=== PATIENT | female | born 2005 | race Two or more races ===

== ENCOUNTER 2024-06-09 19:11 | Day surgery (SDC) | payer MEDICAID, SELFPAY ==
[2024-06-09 19:11] VITALS: BMI 26.5
--- NOTE | 2024-06-09 19:31 | PD.EDRME ---
Rapid Medical Screening Exam RME Arrival date/time: 06/09/24 19:11 19-year-old female G2, approximately 7 weeks presents emergency department complaining of vaginal bleeding that started this past Saturday. Time Seen by Provider: 06/09/24 19:23 Vital signs reviewed by provider: Yes
[2024-06-09 19:45] VITALS: BP 109/71; PULSE 86; RESP 18; TEMP 36.6; O2SAT 99
[2024-06-09 20:18] LABS: Basophils # (Auto) 0.1 Thou/mm3 (0.0-0.2); Basophils % (Auto) 0 % (0-2.5); Eosinophils # (Auto) 0.2 Thou/mm3 (0.0-0.5); Eosinophils % (Auto) 2 % (0-10); Hematocrit 36.5 % (36.0-46.0); Hemoglobin 12.4 g/dL (12.0-16.0); Immature Granulocytes % (Auto) 1 % (0-0); Immature Granulocytes Auto 0.06 Thou/mm3 (0.00-0.00); Lymphocytes % (Auto) 25 % (10-50); Mean Corpuscular Hemoglobin 28.4 pg (25.0-35.0); Mean Corpuscular Volume 84 fL (80-100); Monocytes # (Auto) 0.8 Thou/mm3 (0.0-0.8); Monocytes % (Auto) 7 % (0-12); Neutrophils # (Auto) 7.7 Thou/mm3 (1.8-7.7); Neutrophils % (Auto) 65 % (37-80); Nucleated Red Blood Cell % 0 /100 WBC (0); Platelet Count 308 Thou/mm3 (140-440); RDW Standard Deviation 37.2 fL (36.4-46.3); Red Blood Count 4.36 Miln/mm3 (4.00-5.20); White Blood Count 11.8 Thou/mm3 (3.6-11.0)
[2024-06-09 20:40] LABS: Alanine Aminotransferase 13 U/L (10-49); Albumin, Serum 4.8 gm/dL (3.5-5.0); Albumin/Globulin Ratio 1.5 (1.2-2.2); Alkaline Phosphatase 121 U/L (46-116); Anion Gap 9 (7-16); Aspartate Amino Transferase 21 U/L (0-34); BUN/Creatinine Ratio 18 Ratio (12-20); Bilirubin,Total 0.3 mg/dL (0.3-1.2); Blood Urea Nitrogen 11 mg/dL (9-23); Calcium 9.5 mg/dL (8.3-10.6); Calcium (Corrected) 9.5 mg/dL (8.5-10.1); Carbon Dioxide 26.6 mMol/L (20.0-31.0); Chloride 103 mMol/L (98-107); Creatinine (Component) 0.6 mg/dL (0.6-1.3); Globulin 3.1 gm/dL (2.3-3.5); Glucose 108 mg/dL (74-106); Osmolality,Calculated 277 (275-295); Potassium 3.5 mMol/L (3.4-5.1); Sodium 139 mMol/L (136-145); Total Protein 7.9 gm/dL (5.7-8.2); eGFR > 60 See Note
--- NOTE | 2024-06-09 21:03 | XR_ITS ---
Examination: OB Transvaginal ultrasound of the pelvis, complete Technique: Transvaginal sonographic images pelvis performed using bartholomew scale imaging Exam date and time: June 09, 2024 0911 hrs. Indications: Vaginal spotting and pelvic pain beginning 4 days ago Findings: Uterus 8.7 x 4.8 x 5.8 cm retroverted Heterogeneous thickened endometrial stripe 1.2 cm possible endometrial stripe versus artifact 0.43 cm corresponding to 5 weeks 2 days gestational age No pole, no cardiac activity Endometrial stripe measures up to 14 mm in thickness Right ovary obscured by bowel gas Left ovary 3.9 x 2.1 x 2.8 cm arterial flow Impression: Findings most consistent with retained products and spontaneous in progress Recommend short-term follow-up transvaginal pelvic sonography
[2024-06-09 21:42] LABS: Beta HCG,Quantitative 8469 mIU/mL (<5.0)
[2024-06-09 22:30] VITALS: BP 119/72; PULSE 83; RESP 20; TEMP 37.4; O2SAT 100
[2024-06-09 22:59] LABS: Collection Type, Urine Clean Catch; Squamous Epithelial Cell,Urine 0 /hpf (0-5)
[2024-06-09 23:17] LABS: Bacteria,Urine Rare; Bilirubin,Urine Negative (Negative); Blood,Urine 3+ (Negative); Clarity,Urine Clear (Clear/Hazy); Color,Urine Colorless (Lt Yel-Yel); Culture Indicated,Urine Not Indicated; Glucose, Urine Negative (Negative); Ketones,Urine Negative (Negative); Leukocyte Esterase,Urine Negative (Negative); Nitrite,Urine Negative (Negative); PH,Urine 6.5 (5.0-7.0); Protein,Urine Negative (Neg - Trace); RBC,Urine < 1 /hpf (0-3); Specific Gravity,Urine 1.004 (1.001-1.035); Urobilinogen,Urine Negative mg/dL (0.0-1.0); WBC,Urine < 1 /hpf (0-5)
[2024-06-09 23:19] LABS: Basophils # (Auto) 0.1 Thou/mm3 (0.0-0.2); Basophils % (Auto) 0 % (0-2.5); Eosinophils # (Auto) 0.1 Thou/mm3 (0.0-0.5); Eosinophils % (Auto) 0 % (0-10); Hematocrit 34.8 % (36.0-46.0); Hemoglobin 11.8 g/dL (12.0-16.0); Immature Granulocytes % (Auto) 1 % (0-0); Immature Granulocytes Auto 0.08 Thou/mm3 (0.00-0.00); Lymphocytes # (Auto) 1.9 Thou/mm3 (1.0-4.8); Lymphocytes % (Auto) 13 % (10-50); Mean Corpuscular HGB Conc 33.9 g/dl (31.0-37.0); Mean Corpuscular Hemoglobin 27.9 pg (25.0-35.0); Mean Corpuscular Volume 82 fL (80-100); Monocytes # (Auto) 0.7 Thou/mm3 (0.0-0.8); Monocytes % (Auto) 4 % (0-12); Neutrophils # (Auto) 12.5 Thou/mm3 (1.8-7.7); Neutrophils % (Auto) 82 % (37-80); Nucleated Red Blood Cell % 0 /100 WBC (0); Platelet Count 299 Thou/mm3 (140-440); RDW Standard Deviation 36.8 fL (36.4-46.3); Red Blood Count 4.23 Miln/mm3 (4.00-5.20); White Blood Count 15.3 Thou/mm3 (3.6-11.0)
[2024-06-09 23:38] VITALS: BP 107/61; PULSE 90; RESP 16; O2SAT 100
--- NOTE | 2024-06-09 23:38 | EDNOTE_ITS ---
ED OB Contraction Preg RMI/HPI General Chief complaint: Vaginal Bleeding Stated complaint: 7 weeks vaginal bleeding Time Seen by Provider: 06/09/24 19:23 Source: patient Arrival date/time: 06/09/24 19:11 19-year-old female G2, approximately 7 weeks presents emergency department complaining of vaginal bleeding that started this past Saturday which initially was just vaginal spotting. Patient reports yesterday bleeding increased moderately and has changed over 10 pads today. Patient reports follows BILL [facility]ER at [facility]. Patient denies any fever, chills, vomiting, dizziness, shortness of breath, chest pain, or any other associated symptoms. Mode of arrival: ambulatory Limitations: no limitations RME / HPI RME / HPI Narrative: 06/09/24 19:11 19-year-old female G2, approximately 7 weeks presents emergency department complaining of vaginal bleeding that started this past Saturday. Related Data : 2 Para: 1 Home Medications ?Medication ?Instructions ?Recorded ?Confirmed [id number] 1 mg 1 tab PO QDAY 03/08/23 03/10/23 tablet Previous Rx's ?Medication ?Instructions ?Recorded docusate sodium 100 mg capsule 100 mg PO BID #14 caps 03/11/23 (Colace) ferrous sulfate 325 mg (65 mg 325 mg PO BID #60 tabs 03/11/23 iron) tablet ibuprofen 800 mg tablet 800 mg PO Q8H PRN pain #30 tabs 03/11/23 Allergies Allergy/AdvReac Type Severity Reaction Status Date / Time No Known Allergies Allergy Verified 03/08/23 17:32 Review of Systems Review of Systems Systems Reviewed: All systems reviewed, normal except as documented Constitutional Constitutional: Denies body ache(s), Denies chills and Denies fever(s) Eyes Eyes: Denies change in vision ENT Ears, Nose, Mouth, and Throat: Denies disequilibrium, Denies dizziness, Denies sore throat and Denies vertigo Cardiovascular Cardiovascular: Denies chest pain and Denies dyspnea Respiratory Respiratory: Denies chest congestion, Denies cough and Denies dyspnea Gastrointestinal Gastrointestinal: Denies abdominal pain, Denies nausea and Denies vomiting Genitourinary Genitourinary: Reports abnormal vaginal bleeding Musculoskeletal Musculoskeletal: Denies abnormal gait and Denies arthralgias Integumentary/Breasts Skin/Breast: Denies erythema, Denies rash and Denies wounds Neurologic Neurologic: Denies abnormal gait, Denies disequilibrium, Denies dizziness and Denies vertigo Past Medical History Past Medical History NEUROLOGIC: Negative Neurological Disorders or Seizures CARDIAC: Negative Cardiac Disorders or Congestive Heart Failure RESPIRATORY: Negative Chronic Obstructive Pulmonary Disease (COPD) GASTROINTESTINAL: Negative Gastrointestinal Disorders GENITOURINARY: Negative Genitourinary Disorders or Renal Disease REPRODUCTIVE: Negative Previous Pregnancies MUSCULOSKELETAL: Negative Musculoskeletal Disorders ENDOCRINE: Negative Endocrine Disorders, Diabetes Mellitus Type 1 or Diabetes Mellitus Type 2 HEMATOLOGIC: Positive Blood Disorders and Anemia OTHER HISTORY: Negative Autoimmune Disease, Falls, Blood Transfusions, Anesthesia Reactions or Cancer Family History FAMILY HISTORY: Negative Family Psychiatric Problems, Family Respiratory Disorders, Family Cardiac Disorders, Family Gastrointestinal Problems, Family Cancer, Family Surgery or Family Anesthesia Reaction Surgical History SURGICAL: Negative Section Social History SMOKING STATUS: Never smoker ED Exam General Limitations: Present no limitations General appearance: Present alert and in no apparent distress Head Head exam: Present atraumatic Eye Eye exam: Present normal appearance, PERRL and EOMI ENT ENT exam: Present normal exam, normal oropharynx and mucous membranes moist Neck Neck exam: Present normal inspection, full ROM and trachea midline Chest Chest inspection: Present normal inspection and symmetric chest wall rise Respiratory Respiratory exam: Present normal lung sounds bilaterally Cardiovascular Cardiovascular exam: Present regular rate, normal rhythm and normal heart sounds Abdominal Exam Abdominal exam: Present soft and normal bowel sounds Extremities Exam Extremities exam: Present normal inspection and full ROM Back Exam Back exam: Present normal inspection and full ROM Neurological Exam Neurological exam: Present alert, oriented X3 and CN II-XII intact Psychiatric Psychiatric exam: Present normal affect and normal mood Skin Skin exam: Present warm, dry, intact and normal color Course Quality Measures none Orders Category Date Time Status Place in Surgical Day Care Routine Admission 06/10/24 05:23 Active COVID-19 Screening Questionnaire NOW Care 06/09/24 23:44 Active Consent [Obtain Written Consent For:] .NOW Care 06/10/24 05:25 Active Decision to Admit X1 Care 06/09/24 23:44 Completed Insert IV NOW Care 06/09/24 22:25 Active NPO NOW Care 06/09/24 23:52 Active Diet NPO (NOW) Diet 06/09/24 23:52 Active US OB transvaginal Stat Exams 06/09/24 21:03 Completed ABO/RH Type Stat Lab 06/09/24 19:41 Completed Beta HCG,Quantitative Stat Lab 06/09/24 19:41 Completed CBC Stat Lab 06/09/24 19:41 Completed CBC Stat Lab 06/09/24 22:55 Completed CMP [Comprehensive Metabolic Panel] Stat Lab 06/09/24 19:41 Completed Hemoglobin and Hematocrit Stat Lab 06/10/24 05:36 Ordered Type and Screen Stat Lab 06/09/24 22:55 Results Urinalysis, C/S if Indicated Stat Lab 06/09/24 22:53 Completed prbc [Red Blood Cells] Stat Lab 06/10/24 00:33 Results Doxycycline Inj [Vibramycin Inj] 100 mg Med 06/10/24 05:24 Ordered Sodium Chloride 0.9% 250 ml [Ns] 250 ml IV X1 Sodium Chloride 0.9% 1000 ml [Ns] 1,000 ml Med 06/09/24 23:51 Active IV 125 mls/hr Vital Signs Vital signs: Vital Signs Temperature 98 F 06/09/24 19:45 Pulse Rate 86 06/09/24 19:45 Respiratory Rate 18 06/09/24 19:45 Blood Pressure 109/71 06/09/24 19:45 Pulse Oximetry (%) 99 06/09/24 19:45 Oxygen Delivery Method Room Air 06/09/24 19:45 99% room air within normal limits Vaginal Bleeding MDM Narrative MDM Narrative: 19-year-old female G2, approximately 7 weeks presents emergency department complaining of vaginal bleeding that started this past Saturday which initially was just vaginal spotting. Patient reports yesterday bleeding increased moderately and has changed over 10 pads today. Patient reports follows BILL CHECKER at [facility]. Patient denies any fever, chills, vomiting, dizziness, shortness of breath, chest pain, or any other associated symptoms. CBC leukocytosis 11.8 trending upwards 15.3 with stable hemoglobin 12.4 trending down to 11.8. CMP was unremarkable. Ultrasound findings retained products and spontaneous in progress. Patient reports has had to change her pad 5 times during ER visit. On-call BILL CHECKER Dr. Martino consulted recommended repeat hemoglobin which we obtained and is stable and patient does not have any tachycardia or complaining of dizziness at this time. Dr. Martino agrees to admit patient for D&C in the OR at 0600. Patient will be kept NPO. Patient stable at time of admission. Patient data External records reviewed:: [facility] previous records Clinical information provided by:: patient Social determinants that could affect healthcare access:: none Patient has the following chronic illnesses:: N/A How is presenting disease/condition affected by chronic disease/condition?: no chronic disease Evaluation data The following diagnostics were reviewed and interpreted by me:: lab results and radiology exam(s) Lab and/or radiology exams considered but not ordered:: Ordered Interpretation Summary: Interpreted by me Medications / Prescriptions Medications or Prescriptions considered but not ordered:: Ordered Medication administrations:: Medication Administration History Sodium Chloride (Ns) 1,000 mls @ 125 mls/hr IV .Q8H ONE Stop: 06/10/24 07:50 Last Admin: 06/10/24 00:27 Dose: 125 mls/hr Documented By: JACOB Doxycycline Hyclate 100 mg/ (Sodium Chloride) 250 mls @ 125 mls/hr IV X1 ONE Stop: 06/10/24 07:23 Given Consultations Consultation(s) initiated? (list below): Yes Consultation #1 (Physician, Specialty, Details): Dr. Martino Diagnosis Vaginal Bleeding Differential Diagnosis: incomplete Most likely diagnosis given after review of the tests above:: Incomplete Admission Indicated Admission indicated?: indicated Admission Request Was there a request for admission?: Yes Admission Attestation Admission request attestation: Discussed case with [] from Hospitalist service regarding admission. Discussed patients ED course, exam findings, labs, and radiology results. The Hospitalist [agrees,declines] to accept the patient for admission. Disposition Plan Disposition Plan: Admit Discharge Plan Plan Patient Disposition: Admit Acute Care w/in Hospital Disposition Comment: Stable Prescriptions/Referrals Prescriptions/Med Rec: No Action ferrous sulfate 325 mg (65 mg iron) tablet 325 mg PO BID Qty: 60 0RF ibuprofen 800 mg tablet 800 mg PO Q8H PRN (Reason: pain) Qty: 30 0RF docusate sodium [Colace] 100 mg capsule 100 mg PO BID Qty: 14 0RF 1 mg Tablet 1 tab PO QDAY Referrals: No Primary/Family,Physician [Primary Care Provider] - In 1 week Problem List Clinical Impression: Incomplete Patient/Caregiver Discharge Instructions Print Language: Slovak Stand Alone Forms: Bibiana Award Info., Patient Portal Info Letter PA/MATH INTERVENTIONIST Supervising Physician PA/MATH INTERVENTIONIST Supervising Physician: Dr. Hummel
[2024-06-09 23:39] VITALS: BP 107/61; PULSE 73; RESP 18; TEMP 36.7; O2SAT 100
[2024-06-09 23:43] VITALS: BP 107/61; PULSE 69; RESP 21; TEMP 37.2; O2SAT 100
[2024-06-09 23:45] VITALS: BP 109/60; PULSE 67; RESP 15; O2SAT 100
[2024-06-10] VITALS (13 sets, daily range): BP systolic 91–113; BP diastolic 49–59; PULSE 63–77; RESP 14–22; TEMP 36.3–36.6; O2SAT 97–100
[2024-06-10] MEDS: SODIUM CHLORIDE 0.9% 1000 ML 1,000 ML 125 ML IV (00:27)
--- NOTE | 2024-06-10 05:25 | PD.GYNHP ---
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 OMER is a 19 year old female presented to the ER with heavy vaginal bleeding. Patient is approximately 7 weeks had a previous normal delivery in 2022. Patient denies any dizziness, light headedness, abdominal pain patient has saturated 10 pads yesterday. Review of Systems Review of Systems Systems Reviewed: All systems reviewed, normal except as documented Constitutional Constitutional: Denies body ache(s), Denies chills and Denies fever(s) Eyes Eyes: Denies change in vision ENT Ears, Nose, Mouth, and Throat: Denies disequilibrium, Denies dizziness, Denies sore throat and Denies vertigo Cardiovascular Cardiovascular: Denies chest pain and Denies dyspnea Respiratory Respiratory: Denies chest congestion, Denies cough and Denies dyspnea Gastrointestinal Gastrointestinal: Denies abdominal pain, Denies nausea and Denies vomiting Genitourinary Genitourinary: Reports abnormal vaginal bleeding Musculoskeletal Musculoskeletal: Denies abnormal gait and Denies arthralgias Integumentary/Breasts Skin/Breast: Denies erythema, Denies rash and Denies wounds Neurologic Neurologic: Denies abnormal gait, Denies disequilibrium, Denies dizziness and Denies vertigo Meds Home Medications and Allergies Home Medications ?Medication ?Instructions ?Recorded ?Confirmed ?Type [id number] 1 mg 1 tab PO QDAY 03/08/23 03/10/23 History tablet Allergies Allergy/AdvReac Type Severity Reaction Status Date / Time No Known Allergies Allergy Verified 03/08/23 17:32 Exam - NEWBORN HEARING SCREENER Vital Signs Temp Pulse Resp BP Pulse Ox O2 Del Method 98.9 F 63 16 98/51 L 98 Room Air 06/09/24 23:43 06/10/24 05:00 06/10/24 05:00 06/10/24 05:00 06/10/24 05:00 06/09/24 23:43 Constitutional Constitutional: no acute distress Routine HEENT Exam Head: Present normocephalic and atraumatic Eye: Present EOMI and PERRL ENT: Present mucous membranes moist Routine Neck Exam Neck: Present supple and trachea midline Routine Respiratory Exam Respiratory: Present chest non-tender, lungs clear, normal breath sounds and no resp distress Routine Cardiovascular Exam Cardiovascular: Present RRR Routine Abdominal Exam Abdominal: Present soft and normoactive bowel sounds Routine Extremities Exam Extremities: Present full ROM Routine Skin Exam Skin: Present intact and dry Routine Neurological Exam Neurological: Present alert, oriented X3 and CN II-XII intact Routine Psychiatric Exam Psychiatric: Present normal affect and normal thought process NEWBORN HEARING SCREENER - Results Labs 06/10/24 05:50 06/09/24 19:41 Labs: Short CBC 06/09/24 06/09/24 Range/Units 19:41 22:55 WBC 11.8 H 15.3 H (3.6-11.0) Thou/mm3 Hgb 12.4 11.8 L (12.0-16.0) g/dL Hct 36.5 34.8 L (36.0-46.0) % Plt Count 308 299 (140-440) Thou/mm3 BMP 06/09/24 19:41 Sodium 139 Potassium 3.5 Chloride 103 Carbon Dioxide 26.6 BUN 11 Creatinine 0.6 Glucose 108 H Calcium 9.5 Liver Function 06/09/24 Range/Units 19:41 Total Bilirubin 0.3 (0.3-1.2) mg/dL AST 21 (0-34) U/L ALT 13 (10-49) U/L Alkaline Phosphatase 121 H (46-116) U/L Albumin 4.8 (3.5-5.0) gm/dL Urine 06/09/24 Range/Units 22:53 Urine Color Colorless A (Lt Yel-Yel) Urine Clarity Clear (Clear/Hazy) Urine pH 6.5 (5.0-7.0) Ur Specific [place] 1.004 (1.001-1.035) Urine Protein Negative (Neg - Trace) Urine Glucose (UA) Negative (Negative) Impressions Impression: 19 Y/O with incomplete hb 12.4 on admission The patient has changed 2 pads in a hour, consequtively in 2 hours Vitals stable Assessment and Plan Additional Assessment & Plan Additional Plan: Ptient meets criteria for surgical management , given her bleeding. Boarded for D&C Doxycycline to be given preop for surgical prophylaxis Quality Measures Quality Measures none
--- NOTE | 2024-06-10 05:57 | PC.NURSE ---
REPORT GIVEN TO CAMPOS SOLIZ. ALL QUESTIONS ASKED AND ANSWERED. [facility]YDI HERE TO [facility] NURSE PATIENT TO TAKE TO OR. NO DISTRESS NOTED AT TRANSFER. PATIENT ON ROOM AIR.
[2024-06-10 06:07] LABS: Hematocrit 30.9 % (36.0-46.0); Hemoglobin 10.5 g/dL (12.0-16.0)
--- NOTE | 2024-06-10 06:55 | SUR.PHASEI ---
Arrived to [facility] via [facility]. Resting with eyes closed but responding to name. No c/o pain or discomfort. No s/o distress. Laura pad C/D/I.
--- NOTE | 2024-06-10 07:21 | SUR.PHASEII ---
Kathy Faith made aware to return to hospital with patient's clothing and to received discharge instructions.
--- NOTE | 2024-06-10 07:25 | SUR.PHASEII ---
Tolerated apple juice PO. Laura pad remains C/D/I. No c/o pain.
--- NOTE | 2024-06-10 08:08 | SUR.PHASEII ---
Discharged home to significant other Tovias. Laura pad with minimal red drainage. No c/o pain or discomfort. No s/o distress. Ambulated to w/c with minimal assist, tolerated well. Taken to first floor via w/c by Alaina Borrero RN.
--- NOTE | 2024-06-10 16:15 | ESOP_ITS ---
Operative Note - APPIAN DEVELOPER Procedure Date of procedure: 06/10/24 Procedure Performed: suction D&C Indication: Incomplete Pre-Op diagnosis: incomplete Imaging consistent retained products of conception Hb drop over the period of observation in ER Post-Op diagnosis: incomplete abotion Anesthesia type: General Procedure description: The patient was seen prior to surgery. The potential benefits and risks of the procedure, the likelihood of success, and the problems related to recuperation have been discussed with patient who agrees to proceed. The possible results of nontreatment and significant alternatives to the proposed procedure have also been explained, along with the risks and benefits of the alternatives. Risks and benefits of chosen anesthetic/sedation and possible use of blood/blood products (if appropriate) were discussed.The patient was identified as Rona Carvajal and the procedure verified. A time out was held reviewing the patient identifiers, procedure planned and allergies. At this point the procedure was begun. The patient was positioned and prepped in routine fashion in the dorsal lithotomy position using yellofin stirups. A weighted speculum was then placed into the patient's posterior vagina. A gurvinder was used to expose the anterior lip of the cervix which was then grasped by a ringed forceps.The cervix was found to be dilated to about 2.5 cm. bimanual exam revealed about 8 weeks uterus Suction cannula size 8 was gently advanced to the uterine fundus . The suction device was then activated and the curette rotated to clear products of conception. A horseshoe curette was then performed until a gritty texture was noted. The suction curette was then reintroduced to to clear the uterus of all remaining products of conception. The tenaculum was removed. There was some persistent trickling of blood from the cervical os and bimanual massage was performed. Tranexamic acid was given during the surgery Surgical staff Operation Date: 06/10/24 06:00 Case Staff EMBEDDED LINUX DEVELOPER: Frank Rai Diagnosis Problem List Completed Was Problem List Reviewed/Reconciled?: Yes
== END 2024-06-10 08:08 | disposition home health service (06) ==
LOC: SERX 06-10 05:35 → S2EX 06-10 05:56
PROVIDERS: Emergency Provider Emergency Medicine; Referring Provider Student in an Organized Health Care Education/Training Program; Visit Provider Student in an Organized Health Care Education/Training Program
PROC: (CPT 58120; principal; 2024-06-10 06:00)
DX: O03.4 Incomplete spontaneous abortion without complication (principal); O24.111 Pre-existing type 2 diabetes mellitus, in pregnancy, first trimester; Z3A.01 Less than 8 weeks gestation of pregnancy
CPT/HCPCS: 59812; 36415; 76817; 80053; 81001; 84702; 85014; 85018; 85025; 86850; 86900; 86901; 86923; 99285; A4217; J1100; J1885; J2250; J2405; J2704; J3010; J3490; J7030; S0191; A9270

== ENCOUNTER 2025-02-09 15:01 | Outpatient (AMB) | payer MEDICAID, SELFPAY ==
[2025-02-09 15:11] VITALS: BP 107/60; PULSE 79; RESP 16; TEMP 36.6; O2SAT 98; BMI 25.7
--- NOTE | 2025-02-09 15:11 | AMB.OBINITIA ---
Vital Signs 02/09/25 15:11 Height 1.57 m Height Method Stated Weight 63.276 kg Weight Measurement Method Standing Scale BMI 25.7 BP 107/60 Blood Pressure Source Automatic Cuff Blood Pressure Location Left Upper Arm Position Sitting Respiration 16 Pulse 79 Pulse Source Monitor Temp 97.8 F Temp Source Oral Pulse Oximetry (%) 98 Oxygen Delivery Method Room Air Allergies/Home Meds Allergies & Medications Allergies No Known Allergies Allergy (Verified 02/09/25 15:12) Medication Reconciliation [id number] 1 mg tablet 1 tab PO QDAY 03/08/23 [History Confirmed 02/09/25] docusate sodium 100 mg capsule (Colace) 100 mg PO BID #14 caps 03/11/23 [Rx Confirmed 02/09/25] ferrous sulfate 325 mg (65 mg iron) tablet 325 mg PO BID #60 tabs 03/11/23 [Rx Confirmed 02/09/25] ibuprofen 800 mg tablet 800 mg PO Q8H PRN pain #30 tabs 03/11/23 [Rx Confirmed 02/09/25] Intake Visit Data Collection New Patient or Established: Established Patient (seen at [facility] [place]) Reason for Visit:: OBC Seen by Clinical Staff ONLY (RN/MA): No Avionics Safety Inspector Required: No Do You Feel Safe at Home: Yes Authorities Contacted: N/A PCP or OBGYN visit in last 3 months: Yes Hx Now: Yes Are you currently on any form of Control: No Last menstrual period: 11/09/24 Pain Present Currently: No Pain Scale Used: Ramos-Flores/Numerical Pain scale:: 0 Smoking Status Smoking Status: Never smoker Questionnaires Covid-19 Vaccine Questionnaire Has patient been vacinated for Covid-19 Have you been vacinated for Covid-19: Yes PHQ-9 PHQ-2 Over the last 2 weeks, how often have you been bothered by any of the following problems? 1. Little interest or pleasure in doing things: not at all 2. Feeling down, depressed, or hopeless: not at all Total score: 0 PHQ-9 3. Trouble falling or staying asleep, or sleeping too much: Not at all 4. Feeling tired or having little energy: Not at all 5. Poor appetite or overeating: Not at all 6. Feeling bad about yourself - or that you are a failure or have let yourself or your family down: Not at all 7. Trouble concentrating on things, such as reading the newspaper or watching television: Not at all 8. Moving or speaking so slowly that other people could have noticed? - Or the opposite - being so fidgety or restless that you have been moving around a lot more than usual: not at all 9. Thoughts that you would be better off or of hurting yourself in some way: Not at all Total score: 0 If you checked off any problems, how difficult have these problems made it for you to do your work, take care of things at home, or get along with other people?: not difficult at all Source: Developed by Drs. Lam Lopez, Rasheeda Daly, Vickey Nash and colleagues, with an educational xavier from [employer]. Depression screen completed yes Social History Living Situation History Marital Status: Single Lives With: Family Housing: Apartment Tobacco History Smoking Status: Never smoker Second Hand Smoke Exposure: No Alcohol History Alcohol Intake: Never Domestic Abuse History Do You Feel Safe at Home: Yes History of Present Illness HPI Narrative 19-year-old 3 para 1 for OBI. Last. November 09, 2024. Estimated due date based on LMP was August 16, 2025. Patient is still breast-feeding. First ultrasound January 19, 2025. Baby measured 11 weeks 2 days. This corrected EDC to August 08, 2025. Denies social habits. Denies surgery. Denies chronic illness. Patient denies any SAB complaints. Happy about the . Good family support. 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 Wrong dates. Patient had an ultrasound on January 19, 2025. She was 11 weeks 2 days at that time. And this corrected her EDC to August 08, 2025. Denies bleeding, denies cramps denies bleeding OB panel today with NIPT and carrier screen. Schedule sono with maternal- medicine for anatomy scan. SAB precautions. Return in 4 weeks for OB check. Menstrual History Menstrual reliability: definite Flow: normal Menstrual regularity: regular Monthly: Yes Age at menarche: 10 On control pills at conception: No OB History : 2 Para: 1 Hx # Pregnancies: 0 Hx Total # of Abortions (Spontaneous & Elective): 0 # of Living Children: 1 Delivery History 1st : Child's name: NOT PROVIDED date: 03/10/23 sex: male Delivery type: vaginal History of depression before or after : No Infection History & Risk Evaluation History of STDs: none HIV risk evaluation: low risk Hepatitis B risk evaluation: low risk Patient or partner has history of Genital Herpes: No Varicella/chicken pox status: immunized Genetic Screening & History Genetic Screening/Teratology Counseling - Includes patient, baby's father, or anyone in either family with: 1. Patient's age 35 years or older as of estimated date of delivery: No 2. Thalassemia (Telugu, Ethiopian, Mediterranean, or Background); MCV less than 80: No 3. Neural Tube Defect (Meningomyelocele, Spina Bifida, or Anencephaly): No 4. Congenital Heart Defect: No 5. Down Syndrome: No 6. Logan-Sachs (Ashkenazi Catholic, Cajun, Iraqi Gilmer): No 7. Callum Disease (Ashkenazi Catholic): No 8. Familial Dysautonomia (Ashkenazi Catholic): No 9. Sickle Cell Disease or Trait (): No 10. Hemophilia or other blood disorders: No 11. Muscular Dystrophy: No 12. Cystic Fibrosis: No 13. Naomi's Chorea: No 14. Mental Retardation/Autism: No 15. Other inherited genetic or chromosomal disorder: No 16. Maternal Metabolic Disorder (EG,TYPE 1 Diabetes, PKU): No 17. Patient or baby's father had a child with defects not listed above: No 18. Recurrent loss or a stillbirth: No 19. Medications (including supplements, vitamins, herbs or otc drugs)/illicit/recreational drugs/alcohol since last menstrual period: No 20. Any other: No Infection History 1. Live with someone with TB or exposed to TB: No 2. Rash or viral illness since last menstrual period: No 3. Hepatitis B,C: No Other (see comments) Source: [employer] Review of Systems Review of Systems Systems Reviewed: All systems reviewed, normal except as documented Exam General Limitations: no limitations General Appearance: alert, in no apparent distress, comfortable, cooperative, healthy appearing, well developed and well groomed Head Head exam: atraumatic, normocephalic and normal inspection Chest Chest inspection: Present normal inspection and symmetric chest wall rise Resp Respiratory exam: Present normal lung sounds bilaterally Card Cardiovascular exam: Present regular rate, normal rhythm and normal heart sounds Abdominal Abdominal exam: Present soft and normal bowel sounds Psych Psychiatric exam: Present normal affect and normal mood Office Procedures OB Clinic LOC & Office Proc's Nursing/Assessment Patient Status: Established Patient OB Clinic Nursing Assessment: Medication Reconciliation, Update PMH in EMR and Vital Signs OB Clinic Coordination of Care: Education Complex Pt/Fam, Consent,records obtained, informed consent, Lab and Imaging orders, Results/Orders obtained and Staff clarify orders Special Needs: Heart tones Established Patient Charge Established Patient Point Assignment: 115 Established Patient Point Charge: EP Level 3 (80-115) Assessment & Plan Diagnosis / Problem List (1) Encounter for supervision of high risk in second trimester, antepartum: Status: Acute Plan Schedule MFM appointment for anatomy scan. OB panel with hemoglobin A1c, NIPT and carrier screen. Continue vitamins. SAB precautions. Discussed dates. Return in 4 weeks OB check Additional Plan Follow Up: 4 Weeks (obc)
== END 2025-02-09 15:43 | disposition home or self-care (01) ==
LOC: HODSOBC 15:01
PROVIDERS: Supervising Provider Advanced Practice Midwife; Visit Provider Advanced Practice Midwife
DX: O09.92 Supervision of high risk pregnancy, unspecified, second trimester (principal); Z3A.14 14 weeks gestation of pregnancy
CPT/HCPCS: 99213; G0463

== ENCOUNTER 2025-03-09 10:53 | Outpatient (AMB) | payer MEDICAID, SELFPAY ==
--- NOTE | 2025-03-09 10:57 | OBCLNT_ITS ---
Vital Signs 03/09/25 11:05 Height 1.57 m Height Method Stated Weight 64.013 kg Weight Measurement Method Standing Scale BMI 25.9 BP 106/64 Blood Pressure Source Automatic Cuff Blood Pressure Location Left Upper Arm Position Sitting Respiration 16 Pulse 91 Pulse Source Monitor Temp 98.2 F Temp Source Oral Pulse Oximetry (%) 98 Oxygen Delivery Method Room Air Allergies/Home Meds Allergies & Medications Allergies No Known Allergies Allergy (Verified 03/09/25 10:57) Medication Reconciliation [id number]-Oh-FA 1 mg tablet 1 tab PO QDAY 03/08/23 [History Confirmed 03/09/25] docusate sodium 100 mg capsule (Colace) 100 mg PO BID #14 caps 03/11/23 [Rx Confirmed 03/09/25] ferrous sulfate 325 mg (65 mg iron) tablet 325 mg PO BID #60 tabs 03/11/23 [Rx Confirmed 03/09/25] ibuprofen 800 mg tablet 800 mg PO Q8H PRN pain #30 tabs 03/11/23 [Rx Confirmed 03/09/25] Intake Visit Data Collection New Patient or Established: Established Patient (seen at [facility] within 3 years) Reason for Visit:: OBC Seen by Clinical Staff ONLY (RN/MA): No Websphere Portal Architect Required: No Do You Feel Safe at Home: Yes Authorities Contacted: N/A PCP or OBGYN visit in last 3 months: Yes Date of Last PCP or OBGYN visit: 02/09/25 Hx Now: Yes Are you currently on any form of Control: No Pain Present Currently: No Pain Scale Used: Ramos-Flores/Numerical Pain scale:: 0 Smoking Status Smoking Status: Never smoker Questionnaires Covid-19 Vaccine Questionnaire Has patient been vacinated for Covid-19 Have you been vacinated for Covid-19: No PHQ-9 PHQ-2 Over the last 2 weeks, how often have you been bothered by any of the following problems? 1. Little interest or pleasure in doing things: not at all 2. Feeling down, depressed, or hopeless: not at all Total score: 0 PHQ-9 3. Trouble falling or staying asleep, or sleeping too much: Not at all 4. Feeling tired or having little energy: Not at all 5. Poor appetite or overeating: Not at all 6. Feeling bad about yourself - or that you are a failure or have let yourself or your family down: Not at all 7. Trouble concentrating on things, such as reading the newspaper or watching television: Not at all 8. Moving or speaking so slowly that other people could have noticed? - Or the opposite - being so fidgety or restless that you have been moving around a lot more than usual: not at all 9. Thoughts that you would be better off or of hurting yourself in some way: Not at all Total score: 0 If you checked off any problems, how difficult have these problems made it for you to do your work, take care of things at home, or get along with other people?: not difficult at all Source: Developed by Drs. Lam Lopez, Rasheeda Daly, Vickey Nash and colleagues, with an educational xavier from [employer]. 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 Wrong dates. Patient had an ultrasound on January 19, 2025. She was 11 weeks 2 days at that time. And this corrected her EDC to August 08, 2025. Denies bleeding, denies cramps denies bleeding OB panel today with NIPT and carrier screen. Schedule sono with maternal- medicine for anatomy scan. SAB precautions. Return in 4 weeks for OB check. 03/09/25 -?-?-?-?-?-?-?-?-?-?-?-?- 18w 2d 64.013 kg 106/64 absent unknown 18 135 active Light movement. Denies any signs of SAB such as cramping, bleeding, leaking. No second trimes ter discomforts AFP, MFM pending . discuss ptl precaution. Rtc 4 week obc SONDRA Calculator Estimated Delivery Date Method Current WG Current Estimate 08/08/25 Ultrasound #1 18w 2d Other Estimates 08/16/25 LMP (Certain) 17w 1d 08/08/25 Manual 18w 2d final sondra: 08/08 Notes Visit Date: 03/09/25 Last Updated by: Cleo Viera CNM OB panel: NIPT-,SMA/CF-. O+,abs-,rpr;;nr, rub Imm. hbsag-,hiv-, HC-, GC/CT-, /254, UA-,A!C: 4.9 Visit Date: 02/09/25 Last Updated by: Cleo Viera CNM 19 yo , breast feeding. LMP: 11/09/24, EDC: 08/16/25. wrong dates. 1st sono: 01/19/25, IUP 11w2. EDC: 08/08/25. Office Procedures OBC Clinic LOC & Office Proc's Nursing/Assessment Patient Status: Established Patient OB Clinic Nursing Assessment: Medication Reconciliation, Update PMH in EMR and Vital Signs OB Clinic Coordination of Care: Consent,records obtained, informed consent, Education Simp Pt/Fam, Lab and Imaging orders, Results/Orders obtained and Staff clarify orders Special Needs: Heart tones Established Patient Charge Established Patient Point Assignment: 110 Established Patient Point Charge: EP Level 3 (80-115) Assessment & Plan Diagnosis / Problem List (1) Encounter for supervision of high risk in second trimester, antepartum: Status: Acute Plan aFP today. MFM appointment is pending. Discussed labor precautions. Increase fluids. Continue prenatals. Return in 4 weeks OB to Additional Plan Follow Up: 4 Weeks (obc)
[2025-03-09 11:05] VITALS: BP 106/64; PULSE 91; RESP 16; TEMP 36.8; O2SAT 98; BMI 25.9
== END 2025-03-09 11:13 | disposition home or self-care (01) ==
LOC: HODSOBC 10:53
PROVIDERS: Supervising Provider Advanced Practice Midwife; Visit Provider Advanced Practice Midwife
DX: O09.92 Supervision of high risk pregnancy, unspecified, second trimester (principal); Z3A.18 18 weeks gestation of pregnancy
CPT/HCPCS: 99213; G0463

== ENCOUNTER 2025-04-07 14:22 | Outpatient (AMB) | payer MEDICAID, SELFPAY ==
[2025-04-07 14:28] VITALS: BP 98/60; PULSE 78; RESP 18; TEMP 36.6; O2SAT 99; BMI 27.4
--- NOTE | 2025-04-07 14:28 | OBCLNT_ITS ---
Vital Signs 04/07/25 14:28 Height 1.57 m Height Method Stated Weight 67.642 kg Weight Measurement Method Standing Scale BMI 27.4 BP 98/60 Blood Pressure Source Automatic Cuff Blood Pressure Location Right Upper Arm Position Sitting Respiration 18 Pulse 78 Pulse Source Monitor Temp 97.9 F Temp Source Temporal Artery Scan Pulse Oximetry (%) 99 Oxygen Delivery Method Room Air Allergies/Home Meds Allergies & Medications Allergies No Known Allergies Allergy (Verified 04/07/25 14:30) Medication Reconciliation [id number]-[id number]-FA 1 mg tablet 1 tab PO QDAY 03/08/23 [History Confir med 04/07/25] docusate sodium 100 mg capsule (Colace) 100 mg PO BID #14 caps 03/11/23 [Rx Confirmed 04/07/25] ferrous sulfate 325 mg (65 mg iron) tablet 325 mg PO BID #60 tabs 03/11/23 [Rx Confirmed 04/07/25] ibuprofen 800 mg tablet 800 mg PO Q8H PRN pain #30 tabs 03/11/23 [Rx Confirmed 04/07/25] Intake Visit Data Collection New Patient or Established: Established Patient (seen at [facility] within 3 years) Reason for Visit:: OBC Seen by Clinical Staff ONLY (RN/MA): No Phonograph Needle Tip Maker Required: No Do You Feel Safe at Home: Yes Authorities Contacted: N/A PCP or OBGYN visit in last 3 months: Yes Date of Last PCP or OBGYN visit: 03/09/25 Hx Now: Yes Are you currently on any form of Control: No Pain Present Currently: No Pain Scale Used: Ramos-Flores/Numerical Pain scale:: 0 Smoking Status Smoking Status: Never smoker Immunizations Flu Vaccine in the Last 12 Months: No Flu Vaccine Exclusion Criteria: No Exclusion Criteria Questionnaires Covid-19 Vaccine Questionnaire Has patient been vacinated for Covid-19 Have you been vacinated for Covid-19: No PHQ-9 PHQ-2 Over the last 2 weeks, how often have you been bothered by any of the following problems? 1. Little interest or pleasure in doing things: not at all 2. Feeling down, depressed, or hopeless: not at all Total score: 0 PHQ-9 3. Trouble falling or staying asleep, or sleeping too much: Not at all 4. Feeling tired or having little energy: Not at all 5. Poor appetite or overeating: Not at all 6. Feeling bad about yourself - or that you are a failure or have let yourself or your family down: Not at all 7. Trouble concentrating on things, such as reading the newspaper or watching television: Not at all 8. Moving or speaking so slowly that other people could have noticed? - Or the opposite - being so fidgety or restless that you have been moving around a lot more than usual: not at all 9. Thoughts that you would be better off or of hurting yourself in some way: Not at all Total score: 0 If you checked off any problems, how difficult have these problems made it for you to do your work, take care of things at home, or get along with other people?: not difficult at all Source: Developed by Drs. Lam Lopez, Rasheeda Daly, Vickey Nash and colleagues, with an educational xavier from [employer]. 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 Wrong dates. Patient had an ultrasound on January 19, 2025. She was 11 weeks 2 days at that time. And this corrected her EDC to August 08, 2025. Denies bleeding, denies cramps denies bleeding OB panel today with NIPT and carrier screen. Schedule sono with maternal- medicine for anatomy scan. SAB precautions. Return in 4 weeks for OB check. 03/09/25 -?-?-?-?-?-?-?-?-?-?-?-?- 18w 2d 64.013 kg 106/64 absent unknown 18 135 active Light movement. Denies any signs of SAB such as cramping, bleeding, leaking. No second trimester discomforts AFP, MFM p ending. discuss ptl precaution. Rtc 4 week obc 04/07/25 -?-?-?-?-?-?-?-?-?-?-?-?- 22w 3d 67.642 kg 98/60 absent unknown 22 145 active Reports good movement. Denies leaking, bleeding, contractions Patient has an appointment with [facility] May 04. Reviewed AFP. Discussed labor precautions. Return in 4 weeks OB check Patient has an appointment w [facility]osu[facility] May 04. Reviewed AFP. Discussed labor precautions. Return in 4 weeks OB check, 3rd tri lab prior to visit SONDRA Calculator Estimated Delivery Date Method Current WG Current Estimate 08/08/25 Ultrasound #1 22w 3d Other Estimates 08/16/25 LMP (Certain) 21w 2d 08/08/25 Manual 22w 3d final sondra: 08/08 Notes Visit Date: 04/07/25 Last Updated by: Cleo Viera CNM AFP- Visit Date: 03/09/25 Last Updated by: Cleo Viera CNM OB panel: NIPT-,SMA/CF-. O+,abs-,rpr;;nr, rub Imm. hbsag-,hiv-, HC-, GC/CT-, /254, UA-,A!C: 4.9 Visit Date: 02/09/25 Last Updated by: Cleo Viera CNM 19 yo , breast feeding. LMP: 11/09/24, EDC: 08/16/25. wrong dates. 1st sono: 01/19/25, IUP 11w2. EDC: 08/08/25. Office Procedures OBC Clinic LOC & Office Proc's Nursing/Assessment Patient Status: Established Patient OB Clinic Nursing Assessment: Medication Reconciliation, Update PMH in EMR and Vital Signs OB Clinic Coordination of Care: Complex Care and Chronic Disease 1-5, Education Complex Pt/Fam, Consent,records obtained, informed consent, Lab and Imaging orders, Results/Orders obtained and Staff clarify orders Special Needs: Heart tones Established Patient Charge Established Patient Point Assignment: 140 Established Patient Point Charge: EP Level 4 (120-155) Assessment & Plan Diagnosis / Problem List (1) Encounter for supervision of high risk in second trimester, antepartum: Status: Acute Plan Follow-up [facility] May 04. Discussed AFP results. labor precautions reviewed. Return in 4 weeks OB check Additional Plan Follow Up: 4 Weeks (obc)
== END 2025-04-07 14:44 | disposition home or self-care (01) ==
LOC: HODSOBC 14:22
PROVIDERS: Supervising Provider Advanced Practice Midwife; Visit Provider Advanced Practice Midwife
DX: O09.92 Supervision of high risk pregnancy, unspecified, second trimester (principal); Z3A.22 22 weeks gestation of pregnancy
CPT/HCPCS: 99214; G0463

== ENCOUNTER 2025-05-05 14:47 | Outpatient (AMB) | payer MEDICAID, SELFPAY ==
[2025-05-05 15:01] VITALS: BP 100/63; PULSE 84; RESP 18; TEMP 36.4; O2SAT 99; BMI 28.8
--- NOTE | 2025-05-05 15:01 | OBCLNT_ITS ---
Vital Signs 05/05/25 15:01 Height 1.57 m Height Method Stated Weight 71.214 kg Weight Measurement Method Standing Scale BMI 28.8 BP 100/63 Blood Pressure Source Automatic Cuff Blood Pressure Location Right Upper Arm Position Sitting Respiration 18 Pulse 84 Pulse Source Monitor Temp 97.6 F Temp Source Temporal Artery Scan Pulse Oximetry (%) 99 Oxygen Delivery Method Room Air Allergies/Home Meds Allergies & Medications Allergies No Known Allergies Allergy (Verified 05/05/25 15:02) Medication Reconciliation [id number] 1 mg tablet 1 tab PO QDAY 03/08/23 [History Confi rmed 05/05/25] docusate sodium 100 mg capsule (Colace) 100 mg PO BID #14 caps 03/11/23 [Rx Confirmed 05/05/25] ferrous sulfate 325 mg (65 mg iron) tablet 325 mg PO BID #60 tabs 03/11/23 [Rx Confirmed 05/05/25] ibuprofen 800 mg tablet 800 mg PO Q8H PRN pain #30 tabs 03/11/23 [Rx Confirmed 05/05/25] ferrous sulfate 325 mg (65 mg iron) tablet 325 mg PO BID #60 tabs 05/05/25 [Rx] Immunizations Immunizations Flu Vaccine in the Last 12 Months: No Flu Vaccine Exclusion Criteria: No Exclusion Criteria Care OB Visit Log OB Flowsheet Initial Weight: Not Recorded Date -?-?-?-?-?-?-?-?-?-?-?-?- EGA Weight BP Alb Glu CTX Pres Fundal ht FHR Mov Dilation Station Effacement Hx Notes Visit Note 02/09/25 -?-?-?-?-?-?-?-?-?-?-?-?- 14w 2d 63.276 kg 107/60 absent unknown 14 145 active 19-year-old 3 para 1 for OB I. Wrong dates. Patient had an ultrasound on January 19, 2025. She was 11 weeks 2 days at that time. And this corrected her EDC to August 08, 2025. Denies bleeding, denies cramps denies bleeding OB panel today with NIPT and carrier screen. Schedule sono with maternal- medicine for anatomy scan. SAB precautions. Return in 4 weeks for OB check. 03/09/25 -?-?-?-?-?-?-?-?-?-?-?-?- 18w 2d 64.013 kg 106/64 absent unknown 18 135 active Light movement. Denies any signs of SAB such as cramping, bleeding, leaking. No second trimester discomforts AFP, MFM p ending. discuss ptl precaution. Rtc 4 week obc 04/07/25 -?-?-?-?-?-?-?-?-?-?-?-?- 22w 3d 67.642 kg 98/60 absent unknown 22 145 active Reports good movement. Denies leaking, bleeding, contractions Patient has an appointment with [facility] May 04. Reviewed AFP. Discussed labor precautions. Return in 4 weeks OB check Patient has an appointment w [facility]osu[facility] May 04. Reviewed AFP. Discussed labor precautions. Return in 4 weeks OB check, 3rd tri lab prior to visit 05/05/25 -?-?-?-?-?-?-?-?-?-?-?-?- 26w 3d 71.214 kg 100/63 absent unknown 26 140 active Patient would like to start disability today. 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 Reports movement. Denies leaking, bleeding, contractions sono 05/04, DR walker Start disability today. 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 Continue prenatals. labor precautions and return in 4 weeks OB check Start disability today. 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 Continue prenatals. labor precautions and return in 4 weeks OB check. iron bid SONDRA Calculator Estimated Delivery Date Method Current WG Current Estimate 08/08/25 Ultrasound #1 26w 3d Other Estimates 08/16/25 LMP (Certain) 25w 2d 08/08/25 Manual 26w 3d final sondra: 08/08 Notes Visit Date: 05/05/25 Last Updated by: Cleo Viera CNM 3rd tri lab wnl, Visit Date: 04/07/25 Last Updated by: Cleo Viera CNM AFP- Visit Date: 03/09/25 Last Updated by: Cleo Viera CNM OB panel: NIPT-,SMA/CF-. O+,abs-,rpr;;nr, rub Imm. hbsag-,hiv-, HC-, GC/CT-, /254, UA-,A!C: 4.9 Visit Date: 02/09/25 Last Updated by: Cleo Viera CNM 19 yo , breast feeding. LMP: 11/09/24, EDC: 08/16/25. wrong dates. 1st sono: 01/19/25, IUP 11w2. EDC: 08/08/25. Office Procedures [facility] LOC & Office Proc's Nursing/Assessment Patient Status: Established Patient OB Clinic Nursing Assessment: Medication Reconciliation, Update PMH in EMR and Vital Signs OB Clinic Coordination of Care: Complex Care and Chronic Disease 1-5, Education Complex Pt/Fam, Consent,records obtained, informed consent, Results/Orders obtained and Staff clarify orders Special Needs: Heart tones Established Patient Charge Established Patient Point Assignment: 125 Established Patient Point Charge: EP Level 4 (120-155) Assessment & Plan Diagnosis / Problem List (1) Encounter for supervision of high risk in second trimester, antepartum: Status: Acute Plan Discussed labor precautions. Disability starts today. Discussed third trimester labs. Return in 4 weeks OB check Additional Plan Follow Up: 4 Weeks (obc)
== END 2025-05-05 15:18 | disposition home or self-care (01) ==
LOC: HODSOBC 14:47
PROVIDERS: Supervising Provider Advanced Practice Midwife; Visit Provider Advanced Practice Midwife
DX: O09.92 Supervision of high risk pregnancy, unspecified, second trimester (principal); Z3A.26 26 weeks gestation of pregnancy
CPT/HCPCS: 99214; G0463